=== PATIENT | female | born 1950 | race Caucasian/White ===

== ENCOUNTER 2024-10-30 14:13 | Emergency (ER) | payer MEDICARE, OTHER ==
[~2024-10-30] VITALS: Ht 167.6 cm; Wt 69.2 kg
[~2024-10-30 14:13] MED LIST: NO HOME MEDS
[2024-10-30 14:22] VITALS: BP 166/73; O2SAT 98
[2024-10-30 14:45] LABS: BASOPHILS # (AUTO) 0.1 X10'3 (0-0.2); BASOPHILS % (AUTO) 0.8 % (0-1); EOSINOPHILS # (AUTO) 0.4 X10'3 (0-0.9); EOSINOPHILS % (AUTO) 5.3 % (0-6); HEMATOCRIT 38.3 % (35.0-45.0); LYMPHOCYTES # (AUTO) 2.8 X10'3 (1.1-4.8); LYMPHOCYTES % (AUTO) 34.9 % (21-51); MEAN CORPUSCULAR HEMOGLOBIN 31.2 PG (27.0-31.0); MEAN CORPUSCULAR HGB CONC 34.1 g/dL (33.0-36.5); MEAN CORPUSCULAR VOLUME 91.7 FL (78-98); MEAN PLATELET VOLUME 8.7 FL (7.4-10.4); MONOCYTES # (AUTO) 0.6 X10'3 (0-0.9); NEUTROPHILS # (AUTO) 4.2 X10'3 (1.8-7.7); PLATELET COUNT 280 X10'3 (140-440); RED BLOOD COUNT 4.18 X10'6 (4.20-5.60); RED CELL DISTRIBUTION WIDTH 13.6 % (11.5-14.5); WHITE BLOOD COUNT 8.1 X10'3 (4.5-11.0)
--- NOTE | 2024-10-30 14:52 | ELECTROCARDIOGRAPH REPORT ---
[facility] Test Date: 2024-10-30 Test Time: 14:18:15 Pat Name: MARYAM HARRINGTON Department: EMERGENCY ROOM Room: Gender: F [employer] Supervisor: GALE : 1950 Requested By: STEVE MELLO Order Number: [id number] Reading MD: Dr. Ronnie Fields Measurements Intervals [place] Rate: 87 P: 78 [place]: 154 QRS: 66 QRSD: 124 T: 70 QT: 401 QTc: 483 Interpretive Statements Sinus rhythm Nonspecific intraventricular conduction delay Abnormal inferior Q waves Electronically Signed On 10-30-2024 17:20:[address] Ronnie Fields Please click the below link to view image of tracing.
[2024-10-30 15:02] LABS: ALANINE AMINOTRANSFERASE 22 U/L (12-78); ALBUMIN 4.2 G/DL (3.4-5.0); ALBUMIN/GLOBULIN RATIO 1.4 (1.1-1.5); ALKALINE PHOSPHATASE 78 IU/L (46-116); ANION GAP 9 (8-16); ASPARTATE AMINO TRANSFERASE 16 U/L (10-37); BILIRUBIN,TOTAL 1.5 MG/DL (0.1-1.0); BLOOD UREA NITROGEN 19 MG/DL (7-18); BUN/CREATININE RATIO 24.7 (10.0-20.0); CALCIUM 8.8 MG/DL (8.5-10.1); CHLORIDE 106 MMOL/L (99-107); CREATININE 0.77 MG/DL (0.40-0.90); GLUCOSE 124 MG/DL (70-104); POTASSIUM 3.6 MMOL/L (3.5-5.1); SODIUM 144 MMOL/L (135-145); TOTAL CARBON DIOXIDE 28.9 MMOL/L (24-32); TOTAL PROTEIN 7.3 G/DL (6.4-8.2); eCRCL 59 ML/MIN; eGFR 73 ML/MIN
[2024-10-30 15:09] LABS: PRO BRAIN NATRIURETIC PEPTIDE 38 PG/ML (0-450)
--- NOTE | 2024-10-30 16:41 | RADIOLOGY REPORT ---
CHEST RADIOGRAPH Indication: CP Technique: Single frontal view of the chest was obtained Comparison: None FINDINGS: Lines and Tubes: None Lungs: No focal consolidation. Pleura: No effusion. No pneumothorax. Cardiomediastinal contours: Unremarkable Bones: No acute osseous abnormality. IMPRESSION: 1. No acute cardiopulmonary disease.
--- NOTE | 2024-10-30 19:06 | Physician Documentation ---
History of Present Illness ~ Chief Complaint: Chest Pain Stated Complaint: CP Time Seen by MD: 18:31 Primary Medical Doctor: Short Mode of Arrival: POV HPI This is a very pleasant 73-year-old female who comes in for evaluation of substernal burning chest pain that has been present on and off for the last several days, persisted today. It is mild in its intensity, not accompanied by shortness a breath. It is not exertional, and not positional. She had experienced this in the past but does not have a formal diagnosis. Did not attempt to treat it. She has not had cardiac workup. Denies any history of hypertension, diabetes, hyperlipidemia, smoking, there is no family history of coronary artery disease in the early age. She does not do drugs. Medication Reconciliation Allergies: Uncoded Allergies: BEETS (Allergy, 02/18/13) Miscellaneous Medications Home Med List (No Home Medications), (Reported) Review of Systems ROS 10 point review of systems was performed and unless noted above in HPI is negative for acute process/complaint. Physical Exam Vital Signs: Heart Rate: 76, Respiratory Rate: 16, BP: 166/73, Pulse Oximetry: 98, Weight: 69.150 Physical Exam GENERAL: Awake, alert, oriented, GCS 15, no apparent distress, non-toxic appearing, answers questions, follows commands appropriately. HEENT: Atraumatic, normocephalic, pupils equal, extraocular muscles intact, sclerae anicteric, mucus membranes moist, oropharynx is clear, no stridor. NECK: supple, full active range of motion, trachea midline, no thyromegaly, no lymphadenopathy, no JVD. CARDIOVASCULAR: regular rate/rhythm, no murmurs/gallops/rubs, Pulses are 2+ in all extremities and symmetric. Capillary refill less than 2 seconds. PULMONARY: Nonlabored, good air movement ,no respiratory distress, speaking in full sentences, clear to auscultation bilaterally, no wheezing, no ronchi, no rales, no accessory muscle use. GASTROINTESTINAL: Soft, non-tender, non-distended, normal active bowel sounds, no organomegaly, no pulsatile masses, no CVA tenderness. NEUROLOGIC: Lucid with normal mental status. Normal facial symmetry. Moves all extremities symmetrically and with purpose. No truncal ataxia. Speech is fluid without evidence of dysarthria or aphasia, no focal deficits appreciated. MUSCULOSKELETAL: There is full range of motion of all extremities. There is no joint pain or joint swelling or joint erythema. There is no muscle pain or tenderness or swelling. EXTREMITIES: warm, well-perfused, no cyanosis, no clubbing, no edema, no acute deformities. Skin: warm, dry, no rashes or lesions, no jaundice, no petechiae orpurpura. No ecchymosis. PSYCHIATRIC: Normal affect, normal insight, normal concentration. Focused exam: [] Progress Results/Orders Results/Orders Vital Signs 10/30/24 10/30/24 14:22 16:18 Pulse 76 Resp 16 16 B/P (MAP) 166/73 Pulse Ox 98 Laboratory Tests Test 10/30/24 14:19 10/30/24 17:04 10/30/24 17:36 White Blood Count 8.1 Red Blood Count 4.18 L Hemoglobin 13.0 Hematocrit 38.3 Mean Corpuscular Volume 91.7 Mean Corpuscular Hemoglobin 31.2 H Mean Corpuscular Hemoglobin Concent 34.1 Red Cell Distribution Width 13.6 Platelet Count 280 Mean Platelet Volume 8.7 Neutrophils (%) (Auto) 52.0 Lymphocytes (%) (Auto) 34.9 Monocytes (%) (Auto) 7.0 Eosinophils (%) (Auto) 5.3 Basophils (%) (Auto) 0.8 Neutrophils # (Auto) 4.2 Lymphocytes # (Auto) 2.8 Monocytes # (Auto) 0.6 Eosinophils # (Auto) 0.4 Basophils # (Auto) 0.1 CBC Comment Sodium Level 144 Potassium Level 3.6 Chloride Level 106 Carbon Dioxide Level 28.9 Anion Gap 9 Blood Urea Nitrogen 19 H Creatinine 0.77 Estimated GFR/1.73 m2 73 BUN/Creatinine Ratio 24.7 H Glucose Level 124 H Calcium Level 8.8 Total Bilirubin 1.5 H Aspartate Amino Transf (AST/SGOT) 16 Alanine Aminotransferase (ALT/SGPT) 22 Alkaline Phosphatase 78 Troponin I High Sensitivity 5 5 6 Pro-B-Type Natriuretic Peptide 38 Total Protein 7.3 Albumin 4.2 Globulin 3.1 Albumin/Globulin Ratio 1.4 Chemistry Comments Troponin I High Sens Percent Delta 0 20 Troponin I Hi Sens Absolute Change 0 1 Heart Score: Heart Score Response (Comments) Value History Slightly Suspicious 0 EKG Normal 0 Age >65 2 Risk Factors No known risk factors 0 Troponin Normal limit 0 Total 2 Medical Decision Making Findings Facility Status: ED Holds, RME process The plan was discussed with the patient, who demonstrates clear understanding of the plan and is in agreement with the plan unless otherwise noted in the chart. All questions have been answered, all concerns were addressed unless otherwise documented. I was available throughout their ED stay for frequent reassessment and questions. Differential Diagnoses (considered and possible or likely): [Differential diagnosis considered includes chest wall pain, pleurisy, pneumonia, pulmonary embolus, GERD, esophagitis, gastritis, anxiety, stress reaction, costochondritis, acute coronary syndrome, aortic dissection, pericarditis, myocarditis, or pneumothorax.] ??Differential Diagnoses (considered and unlikely, not requiring evaluation currently): [Aortic/great vessels dissection was considered but it is unlikely based on absence of ripping, tearing, migratory chest pain, absence of syncope or focal neurologic deficits, physical examination indicating equal and symmetric pulses.] MDM Data Please see [facility] for the following: Independent Historians and external Records Review. Historian: [Patient] Independent Historians: ?[] Medication Management: [Reviewed medication list] Social History and determinants: [Reviewed] Please see the body of the note for the following: Any independent interpretations of ECG, imaging studies. All vitals signs/haemodynamics, ordered tests were independently reviewed and interpreted by myself. Nursing triage complaint and vitals reviewed, additional nursing notes were reviewed as available and I agree unless otherwise noted or documented in contradiction in the chart Vital Signs: Independently reviewed Labs: Independently interpreted Imaging: Independently interpreted Old Medical Records: Independently reviewed, see [facility] for relevant summary and information Pulse Oximetry: [97%] interpreted as [normal on room air] by me Additionally notably showing: [Hemodynamically stable. Unremarkable workup, except for dehydration, including 3- troponins. Chest x-ray is unremarkable on my independent interpretation. Narrow mediastinum. Normal cardiac silhouette. No focal infiltrates. Grossly normal bony structures.] Tests considered but not ordered include: [CTA has been considerably does not appear to be necessary as her risk for PE is low.] Social Determinants of Health Impact: Patient was evaluated in [facility], [facility] [place] to healthcare due to below par ratio of patient to medical providers. [] Comorbid Conditions Impacting Present Evaluation and Care/Treatment: [None reported by the patient, she denies cardiac risk factors] Management Discussions with other Healthcare Providers: [None] Treatment and Disposition Medication Management (Given or considered): []. See EMR for details Consideration for Hospitalization/Escalation/Deescalation of Care: Admission for observation has been considered, [however the patient is able to tolerate p.o., their symptoms are controlled, they are able to rely on oral medications, and their chief complaint/diagnosis can be managed on outpatient basis.] ?ED Course:?[Heart score is two. With the only points for age.] ?Shared decision making:?[Patient is hemodynamically stable for discharge home with follow with their primary care provider. [ ] Specific and cautious return precautions provided and discussed with full understanding. Any incidental findings were also discussed and follow up recommendations given. [] All questions answered. Patient/family were able to verbalize back return precautions. Patient/family agree to plan. Copies of imaging and laboratory studies were provided.] Code status:?FULL Please see the full Electronic Medical Record for full details of nursing documentation, medications list, other records of complete past medical history and conditions, vital signs, laboratory studies, and any radiologic study interpretations by radiologists. Portions of this note were completed using [employer] dictation software and as a result there may exist minor errors in spelling. I have reviewed elements of past family and social history and agree as included in note. Departure Disposition: 01 HOME / SELF CARE / HOMELESS Impression: Primary Impression: Acute chest pain Condition: Improved Discharge Instructions: Nonspecific Chest Pain, Adult Additional Instructions: Please follow-up with your primary care provider, get referral to Cardiology. While your chest pain is low risk today, and your heart score is only two, which is the score that we used to measure and risk stratify chest pain, given your age you may need to see a university tutor specialist. Referrals: NO PRIMARY CARE PROVIDER (PCP) Education Educated: Patient, Family Educated regarding: diagnosis, treatment, prognosis, need for follow up (Advised to follow-up with investigation specialist) Signature Scribe Signature: No scribe Attestation: This note accurately reflects clinical decisions, work performed by myself, DO DEZ Fairbanks NICHOLAS M DO October 30, 2024 19:05
[2024-10-30 19:25] VITALS: PULSE 75; RESP 15
== END 2024-10-30 19:27 | disposition home or self-care (01) ==
LOC: ER 14:13
DX: R07.89 Other chest pain (principal)
CPT/HCPCS: 36415; 71045; 80053; 83880; 84484; 85025; 93005; 99285